=== PATIENT | female | born 1975 | race Caucasian/White ===

== ENCOUNTER → 2020-12-31 16:33 | Outpatient (BNVA) | payer SELFPAY | PROVIDERS: Family Provider Nurse Practitioner Family; PCP Registered Nurse; Visit Provider Registered Nurse | DX: E07.9 Disorder of thyroid, unspecified (principal); E03.9 Hypothyroidism, unspecified; L85.8 Other specified epidermal thickening | CPT/HCPCS: 80053; 84443; 85025 ==

== ENCOUNTER 2021-10-19 14:53 | Emergency (ER) | payer SELFPAY ==
[2021-10-19 15:05] VITALS: BP 168/70; PULSE 87; RESP 18; TEMP 37.4; O2SAT 97
--- NOTE | 2021-10-19 15:42 | ED_ITS ---
HPI - Skin/Abscess/Foreign Bdy General: Chief complaint: General Medical Stated complaint: Bug Bite & rt leg pain Time Seen by Provider: 10/19/21 15:24 Source: patient Mode of arrival: ambulatory Limitations: no limitations History of Present Illness: Patient is a nice 46-year-old female presents to ED today with a complaint of a skin lesion in between her breasts. Patient tells me 3 days ago she felt like she got bit/stung by something as she immediately felt some discomfort to that area. She states she immediately looked down and did not visualize any type of insect but did have a whelp to t hat area. She states since then the area has continued to feel sore and has developed some redness. MD complaint: insect bite/sting and lesion Onset (ago): day(s) Tetanus up to date: yes Location: chest Severity: mild Relieving factors: none Exacerbating factors: none Context: none Associated symptoms: Reports no associated symptoms; Deny chills, fever(s), nausea or vomiting Treatments prior to arrival: none Review of Systems Const: Denies: fever(s), chills, body aches, fatigue or malaise Eyes: Denies: change in vision or blurry vision Card: Denies: chest pain Resp: Denies: dyspnea GI: Denies: abdominal pain, nausea, vomiting or diarrhea Musc: Denies: neck pain, back pain, extremity pain or joint pain Skin/Breast: Reports: new lesions Neuro: Denies: headache(s), numbness in extremities, weakness in extremities or sensory changes [facility] PFSH: Family History Mother Diabetes Father Stroke Social History Alcohol intake: never Adopted: No Caregiver/support person: No Lives independently: No Household members: spouse Marital status: Current occupational status: employed Sexually active: Yes Current gender identity: Female Physical Exam Const: COMMON NORMALS: no acute distress, patient oriented x3, no limitations and alert GENERAL APPEARANCE: cooperative ORIENTATION/CONSCIOUSNESS: Yes awake, Yes oriented to person, Yes oriented to place and Yes oriented to time Chest: Chest images (female): 1. pt has an area measuring about 4x4cm of erythema w/o warmth; there is a central lesion that is indurated but induration does not extend outside of just underneath presumed bite/sting; there is no fluctuance/drainage noted Extremity: COMMON NORMALS: normal to inspection GENERAL: Yes normal exam except as noted Neuro: STACIA COMA SCALE: document GCS findings Stacia coma scale eye opening: Spontaneous [place] coma scale verbal response: Orientated Stacia coma scale motor response: Obey commands [place] coma scale total score: 15 COMMON NORMALS: patient oriented x3, moves all extremities, no focal motor deficits and no sensory deficits noted SENSORIUM/ORIENTATION: Yes alert, Yes oriented to person, Yes oriented to place and Yes oriented to time Skin: NARRATIVE SKIN EXAM: apart from previously documented-normal skin exam Course Vital Signs: Vital signs: Vital Signs Temperature 99.3 F 10/19/21 15:05 Pulse Rate 87 10/19/21 15:05 Respiratory Rate 18 10/19/21 15:05 Blood Pressure 168/70 10/19/21 15:05 Pulse Oximetry 97 10/19/21 15:05 MDM - Skin/Abscess/Foreign Bdy Medicial Decision Making At this time skin lesion appears as a normal reaction to an insect bite/sting. Recommend continuing to monitor wound closely. Clean with warm soap and water. Avoid picking. If erythema continues to spread outward or if lesion becomes more painful or begins draining or if she notices any lymphangitic streaking she may begin antibiotic therapy. Return to ED precautions verbally discussed with patient. Discharge Plan Discharge Patient Disposition: Home Clinical Impression: Bite or sting by insect Condition: Stable Prescriptions: New cephalexin 500 mg capsule 500 mg PO Q6H 7 Days Qty: 28 0RF No Action Contrave 8-90 mg tablet extended release 1 tab PO BID 60 Days Qty: 120 0RF Rx Instructions: 340B albuterol sulfate [ProAir HFA] 90 mcg/actuation HFA aerosol inhaler 1 inh inhalation QID PRN (Reason: shortness of breath or wheezing) Qty: 6.7 0RF Rx Instructions: 340b Discharge Orders: Discharge ED (Routine); Ordered 10/19/21 Ordered By: Radha Miller Referrals: Yobani Barrios FNP [Primary Care Provider] - Jarred Kim FNP [Family Provider] - Activity Restrictions/Additional Instructions: As we discussed I think it is appropriate to continue to monitor lesion closely over the next 24 to 48 hours as, at this point, this most likely is a normal reaction to bug bite/sting. If area of redness continues to spread and becomes more painful or begins draining you may begin antibiotic therapy. Coding Level of Care Code ED Multimedia Production Assistant for Hannah Mccarthy
== END 2021-10-19 15:51 | disposition home or self-care (01) ==
PROVIDERS: Emergency Provider Physician Assistant; Family Provider Nurse Practitioner Family; PCP Registered Nurse
DX: S20.364A Insect bite (nonvenomous) of middle front wall of thorax, initial encounter (principal); W57.XXXA Bitten or stung by nonvenomous insect and other nonvenomous arthropods, initial encounter
CPT/HCPCS: 99283